=== PATIENT | male | born 1955 | race Hispanic/Latino ===

== ENCOUNTER → 2022-07-13 10:48 | Outpatient (CLI) | payer MEDICARE, OTHER, SELFPAY | PROVIDERS: PCP Family Medicine; Visit Provider Nurse Practitioner Family | DX: R30.0 Dysuria (principal) | CPT/HCPCS: 87086 ==

== ENCOUNTER → 2022-08-06 09:29 | Outpatient (CLI) | payer MEDICARE, OTHER, SELFPAY ==
--- NOTE | 2022-08-06 09:33 | DI.RAD.S_ITS ---
PROCEDURE: XR SHOULDER RT MIN 2V INDICATIONS: chronic right shoulder pain TECHNIQUE: 2 views of the shoulder were acquired. COMPARISON: None. FINDINGS: Bones: No fractures or dislocations. No suspicious bony lesions. Visualized ribs appear intact. Soft tissues: Trace calcification in the infraspinatus tendon near its insertion IMPRESSION: Trace infraspinous tendon calcification may reflect calcific tendinitis Approved by: Yfn Warner M.D. on 08/06/2022 at 12:28
== END ==
PROVIDERS: PCP Family Medicine; Referring Provider Family Medicine; Visit Provider Family Medicine
DX: M25.511 Pain in right shoulder (principal); G89.29 Other chronic pain
CPT/HCPCS: 73030

== ENCOUNTER → 2022-08-11 17:50 | Outpatient (CLI) | payer MEDICARE, OTHER, SELFPAY ==
--- NOTE | 2022-08-11 17:52 | DI.MRI.S_ITS ---
PROCEDURE: MR SHOULDER RT WO CON INDICATIONS: chronic right shoulder pain TECHNIQUE: Noncontrast oblique coronal T2 fast spin echo with fat saturation, oblique sagittal T1 spin echo and T2 fast spin echo with fat saturation, axial T1 spin echo and T2 fast spin echo with fat saturation through the shoulder. COMPARISON: Merged With [facility], CR, XR SHOULDER RT MIN 2V, 08/06/2022, 10:12. FINDINGS: Image quality: Excellent. Rotator cuff: There is full-thickness tearing of supraspinatus tendon at the anterior footprint measuring 7 mm in anterior-posterior dimension with proximal tendon retraction measuring up to 1.4 cm. There is low-grade partial articular sided tearing of the anterior infraspinatus tendon. Small calcification seen on recent radiographs is not well visualized with MRI.The teres minor tendon is intact. There is moderate subscapularis tendinosis. Grade 2 fatty infiltration of the teres minor muscle is most likely secondary to chronic denervation changes. The remaining rotator cuff musculature is normal in bulk. No mass is seen along the course of the axillary nerve. Bones and bursae: No acute trabecular bone injury or fracture. Chronic traction cystic changes are seen at the posterosuperior humeral head. Multifocal cartilage irregularity is seen within the glenohumeral joint without a definite full-thickness defect identified. Moderate to severe degenerative changes are seen in the acromioclavicular joint with marginal osteophyte formation and subchondral cystic changes. There is mild downsloping of the lateral acromion. A small amount of subacromial/subdeltoid bursal fluid is present. There is a small glenohumeral effusion. Capsule and soft tissues: There is diffuse labral degeneration and chronic degenerative tearing at the superior labrum. The proximal biceps long head tendon demonstrates tendinosis and partial intrasubstance tearing. There is partial effacement of the normal fat signal in the rotator interval. The glenohumeral ligaments are intact. IMPRESSION: 1. Full-thickness tearing of the supraspinatus tendon at the anterior footprint measuring 0.7 cm in anterior-posterior dimension with proximal tendon retraction measuring up to 1.4 cm. 2. Low-grade partial articular sided tearing of the anterior infraspinatus tendon. 3. Moderate subscapularis tendinosis. 4. Tendinosis and partial intrasubstance tearing of the proximal biceps long head tendon. 5. Diffuse labral degeneration and chronic degenerative tearing of the superior labrum. 6. Moderate to severe acromioclavicular joint osteoarthrosis. 7. Small subacromial/subdeltoid bursal effusion communicates with the glenohumeral joint space. Approved by: Johnny Liz M.D. on 08/13/2022 at 8:19
== END ==
PROVIDERS: PCP Family Medicine; Referring Provider Family Medicine; Visit Provider Family Medicine
DX: M75.121 Complete rotator cuff tear or rupture of right shoulder, not specified as traumatic (principal); S43.491A Other sprain of right shoulder joint, initial encounter; M19.011 Primary osteoarthritis, right shoulder; M25.411 Effusion, right shoulder; M25.511 Pain in right shoulder; G89.29 Other chronic pain
CPT/HCPCS: 73221

== ENCOUNTER 2023-04-19 08:17 | Day surgery (SDC) | payer MEDICARE, OTHER, SELFPAY ==
--- NOTE | 2023-04-19 | PATH_ITS ---
[facility] Accession Number: [id number] No. of containers..01 Tissue . 01 Material submitted: . colon - ASCENDING COLON POLYP X2 . 01 Diagnosis: Ascending Colon Polyps: Tubular adenoma x2. MRV 04/26/2023 1906 Local . 01 Electronically signed: . Chapin Atwood MD, PhD, Pathologist NPI- [id number] . 01 Gross description: . ASCENDING COLON POLYP X2: Received in formalin are 2 fragment(s) of turner, soft tissue measuring 0.2 x 0.2 x 0.2 cm to 0.5 x 0.2 x 0.2 cm submitted entirely in 1 cassette(s) /IZABEL 04/22/20237 Local . 01 Pathologist provided ICD-10: D12.2 . 01 CPT . 419228 Specimen Comment: A courtesy copy of this report has been sent to [phone] Performed at: 01 [facility] [address] [place] [address], [place], [place] [id number] MD Uvaldo Loza MD Phone: [phone]
[2023-04-19 08:33] VITALS: BP 164/94; PULSE 88; RESP 16; TEMP 36.1; O2SAT 99; BMI 26.3
[2023-04-19] MEDS: LACTATED RINGERS 1,000 ML 200 ML IV (08:53)
--- NOTE | 2023-04-19 08:56 | P.HP_ITS ---
History of Present Illness History of Present Illness Date Patient Seen: 04/19/23 Time Patient Seen: 08:56 Chief complaint: Colonoscopy Narrative: 67-year-old man personal history of colonic polyps here for screening colonoscopy. Last colonoscopy 5 years ago in [facility] 3 polyps were identified. No family history of intestinal malignancy. No abdominal pain unintentional weight loss blood per rectum. PENDING SALE TO [facility] Medical History Chronic pain of right elbow Colon polyps Hyperglycemia Hyperlipidemia Seasonal allergies Surgical History Anesthesia History of hernia repair (~2014) Tibia/fibula fracture (~2011) Family History Father Congestive heart failure Mother Dementia Social History household members: spouse Smoking Status: Never smoker alcohol intake: never Meds Home Medications and Allergies Home Medications Medication Instructions Recorded Confirmed Type aspirin 81 mg chewable tablet 81 mg PO DAILY 11/05/21 04/19/23 History metformin 500 mg tablet 500 mg PO BIDWMEAL #180 tabs 09/23/22 04/19/23 Rx atorvastatin 20 mg tablet (Lipitor) 20 mg PO BEDTIME #90 tabs 12/21/22 04/19/23 Rx Allergies Allergy/AdvReac Type Severity Reaction Status Date / Time No Known Drug Allergies Allergy Verified 04/19/23 08:33 Exam Vital Signs (past 8 hours): - 04/19/23 08:33 Temperature 96.9 F L Pulse Rate 88 Respiratory Rate 16 Blood Pressure 164/94 H Pulse Oximetry 99 Oxygen Delivery Method Room Air Oxygen Delivery Method Room Air Narrative Exam Narrative: General adult man alert oriented no acute distress Chest nonlabored respiration Extremities warm well perfused Assessment & Plan Assessment and plan (1) Colon polyps: Qualifiers: Colon polyp type: unspecified Colon location: unspecified part of colon Qualified Code(s): K63.5 - Polyp of colon Status: Acute Assessment & Plan narrative: The patient requires colorectal screening and colonoscopy is recommended. Technical details were discussed. Risks, benefits, alternatives explained. Risks including but not limited to myocardial infarction, aspiration, bleeding, pain, missed lesion, incomplete examination, need for further radiographic studies, colonic perforation, and need for major abdominal surgery were discussed. All questions were answered to their satisfaction, and they are in agreement with this plan.
--- NOTE | 2023-04-19 10:58 | PM.OP.COLON ---
Operative Date/Time/Diagnoses Date of procedure: 04/19/23 Time of procedure: 10:58 Pre-op diagnosis: Personal history of colonic polyps Post-op diagnosis: other (Colonic polyps x2) Procedure & Clinicians Study performed: Colonoscopy and polypectomy Same procedure as scheduled: Yes Indications: Personal history of colonic polyps, colorectal screening Surgeon: Abdirizak Riggs Procedure Notes Procedure in detail: The history and physical was performed/updated and the patient is ASA class is 2. The procedure was discussed in detail with the patient. Potential risks complications including infection, bleeding, missed diagnosis, perforation, need for surgery, and were explained. Their questions were answered and informed consent was obtained. Patient was brought to the procedure room and placed standard monitoring equipment. The patient's vital signs were monitored continuously throughout the entire procedure. Prior to starting time-out was performed. The patient was placed in the left lateral recumbent position. Procedural sedation was administered by anesthesia. Examination began with a thorough inspection of the perianal area there was no evidence of fissures, fistulae, external hemorrhoids or cutaneous malignancy. The colonoscopy scope was then placed into the anal canal and was advanced to the cecum, which was identified by the ileocecal valve, the appendiceal orifice and the confluence of the taenia. The scope was then slowly withdrawn examining colon thoroughly in all directions, irrigating it of any residual stool. Ascending colon-to 5 mm polyps removed with biopsy forceps The patient tolerated the procedure well. They will be discharged once criteria are met. The prep was of good/excellent quality. The withdrawl time was 10 minutes. Specimen(s): other (Ascending colon polyps x2) Impression: Colonic polyps x2 Post-procedure Plan for aftercare: Follow-up is dependent on pathology findings likely 5 years Disposition: same day surgery
[2023-04-19 11:05] VITALS: BP 105/72; PULSE 73; RESP 17; TEMP 37.2; O2SAT 93
[2023-04-19 11:13] VITALS: BP 112/71; PULSE 87; RESP 18; TEMP 37.2; O2SAT 95
[2023-04-19 11:26] VITALS: BP 141/55; PULSE 67; RESP 17; TEMP 36.1; O2SAT 99
== END 2023-04-19 11:28 | disposition home or self-care (01) ==
PROVIDERS: PCP Family Medicine; Referring Provider Surgery; Visit Provider Surgery
PROC: 0DJD8ZZ Inspection of Lower Intestinal Tract, Via Natural or Artificial Opening Endoscopic (ICD-10-PCS; CPT 45378; principal; 2023-04-19 09:15)
DX: Z12.11 Encounter for screening for malignant neoplasm of colon (principal); Z86.010 Personal history of colon polyps; D12.2 Benign neoplasm of ascending colon
CPT/HCPCS: 45380

== ENCOUNTER → 2025-02-20 14:53 | Outpatient (CLI) | payer MEDICARE, OTHER, SELFPAY ==
--- NOTE | 2025-02-20 14:58 | DI.CT.S_ITS ---
PROCEDURE: CT SINUS SCREEN WO CON INDICATIONS: CHRONIC PANSISNICITUS TECHNIQUE: Noncontrast 3.0 mm axial images acquired from the frontal sinuses to the mid- sella, with coronal and sagittal reformats. For radiation dose reduction, the following was used: automated exposure control, adjustment of mA and/or kV according to patient size. COMPARISON: None. FINDINGS: Image quality: Excellent. Maxillary Sinuses: No bony remodeling or destruction. Sinuses are clear. Ethmoid Air Cells: No bony remodeling or destruction. Sinuses are clear. Sphenoid Sinuses: No bony remodeling or destruction. Sinuses are clear. Small left lateral retention cyst Frontal Sinuses: No bony remodeling or destruction. Sinuses are clear. Ostiomeatal Complexes: Ostiomeatal complexes are patent. Bilateral Jolene cells. Miscellaneous: Bowing of the osseous nasal septum to the left with moderate spur. Pneumatization of the left middle turbinate IMPRESSION: Bilateral Jolene cells and left owen bullosa. No evidence of active mucosal sinus disease or remodeling. Approved by: Yfn Warner M.D. on 02/20/2025 at 15:45
== END ==
PROVIDERS: PCP Family Medicine; Referring Provider Otolaryngology; Visit Provider Otolaryngology
DX: J32.4 Chronic pansinusitis (principal); G44.89 Other headache syndrome; R09.82 Postnasal drip; J34.3 Hypertrophy of nasal turbinates
CPT/HCPCS: 70486